=== PATIENT | female | born 1990 | race Two or more races ===

== ENCOUNTER 2021-01-14 05:00 | Day surgery (SDC) | payer BC, OTHER ==
[2021-01-12 15:04] LABS: BASOPHILS 0.8 % (0-2); EOSINOPHILS 2.1 % (0-7); HEMATOCRIT 45.5 % (36.0-48.0); HEMOGLOBIN 15.5 g/dL (12-16); LYMPHOCYTES 39.7 % (15-50); MCH 29.4 pg (26.0-34.0); MCHC 34.1 g/dL (31.0-37.0); MCV 86.3 fL (80.0-100.0); MEAN PLATELET VOLUME 8.5 fL (7.4-10.4); MONOCYTES 6.9 % (2-11); NEUTROPHILS 50.5 % (40-80); RBC 5.27 10x6/uL (4.00-5.40); RDW 13.3 % (11.5-14.5); WBC 6.7 10x3/uL (4.8-10.8)
[2021-01-12 15:39] LABS: PLATELET COUNT 244 10x3/uL (130-400)
[~2021-01-14] VITALS: Ht 167.6 cm; Wt 103.0 kg
[2021-01-14 06:09] VITALS: BP 129/89; Ht 167.6 cm; Wt 103.0 kg
[2021-01-14 06:18] LABS: HCG URINE NEGATIVE (NEGATIVE)
--- NOTE | 2021-01-14 11:49 | NUR ---
ASSUMED CARE OF PATIENT @ [id number]
[2021-01-14 15:40] LABS: HEMATOCRIT 42.3 % (36.0-48.0); HEMOGLOBIN 14.3 g/dL (12-16)
--- NOTE | 2021-01-14 15:41 | NUR ---
[address] ARAYA REGARDING ADMISSION STATUS. SHE IS AWAITING LAB RESULTS. STATED THAT SHE WOULD BE UP TO SEE PATIENT AND DISCUSS FINDINGS WITH HER.
--- NOTE | 2021-01-14 16:35 | NUR ---
1600 - DR. NICK HERE. ORDERS WRITTEN FOR CLEAR LIQUID DIET.
--- NOTE | 2021-01-14 16:36 | NUR ---
1610 PATIENT COMPLAINED OF HEADACHE. TYLENOL GIVEN FOR RELIEF. DISCUSSED HER MOVE TO A ROOM OVERNIGHT FOR OBSERVATION.
--- NOTE | 2021-01-14 17:36 | NUR ---
1739 WAITING TO GIVE REPORT. NURSE NOT AVAILABLE AT THIS TIME.
--- NOTE | 2021-01-14 17:43 | NUR ---
1740 REPORT CALLED TO MACO IN L AND D IN PREPARATION FOR TRANSFER TO ROOM 1276. CANTU EMPTIED OF 450CC. 1800CC IV FLUID INTAKE SINCE SURGERY.
[2021-01-14 19:30] VITALS: BP 124/71
--- NOTE | 2021-01-14 19:30 | NUR ---
RN TO BEDSIDE. SHIFT ASSESSMENT COMPLETED AT THIS TIME. SEE FLOWSHEET. PIV SL, CANTU CATH D/C'D WITH CATH TIP INTACT AND 500 ML CLEAR YELLOW URINE IN CANTU BAG. PT TOLERATED WELL. PT REQUESTS PAIN MEDICATION. 650 MG TYELNOL GIVEN PER ORDER. SEE EMAR FOR ADMINISTRATION. PT DENIES FURTHER NEEDS. WILL CONTINUE TO MONITOR. BED LOW,W HEELS LOCKED, CL AND PHONE WITHIN REACH SIDE RAILS UP X2.
--- NOTE | 2021-01-14 22:40 | NUR ---
ROUNDS MADE. PT RESTING QUIETLY WITH EYES CLOSED, RESPIRATIONS EVEN UNLABORED. PT LEFT UNDISTURBED.
--- NOTE | 2021-01-15 02:24 | NUR ---
ROUNDS MADE. PT CONTINUES TO REST QUIETLY IN RIGHT LATERAL IN HOSPITAL BED. PT LEFT UNDISTURBED.
--- NOTE | 2021-01-15 04:09 | NUR ---
ROUNDS MADE. PT RESTING SUPINE WITH RESPIRATIONS EVEN AND UNLABORED. PT LEFT UNDISTURBED.
[2021-01-15 07:49] VITALS: BP 108/65
--- NOTE | 2021-01-15 07:49 | NUR ---
RECEIVED PT SITTING UP IN BED. WATCHES TV. AAO X 3. VSS. HRRR WITHOUT AUDIBLE MURMUR. BBS CLEAR. BS X 4. ABDOMEN SOFT/NON-DISTENDED. 3 LAP INCISIONS NOTED. SMALL DRESSING TO UMB DRY WITHOUT DRAINAGE NOTED. 2 OUTER LAP INCISIONS WITHOUT REDNESS, SWELLING OR DRAINAGE NOTED. NO VAGINAL DISCHARGE NOTED ON PERIPAD. NEG HOMANS' SIGN. PPP. NO EDEMA NOTED TO BLE. SL TO RIGHT AC. SITE CLEAR. PT DENIES PAIN. PT OOB AND AMB TO BR TO VOID. VOIDS FREELY. DENIES ANY VAGINAL DISCHARGE. PT AMBULATES BACK TO BED. REGULAR DIET SERVED. SR UPX 2. CALL LIGHT IN REACH.
--- NOTE | 2021-01-15 08:30 | NUR ---
DR ARAYA VISITS WITH PT.
[2021-01-15] MEDS ORDERED: PERCOCET 5-3251 TAB PO (09:30)
[2021-01-15] MEDS ORDERED: IBUPROFEN800 MG PO (09:31)
[2021-01-15 10:08] LABS: HEMATOCRIT 37.6 % (36.0-48.0); HEMOGLOBIN 12.8 g/dL (12-16)
--- NOTE | 2021-01-15 10:33 | NUR ---
DR ARAYA NOTIFIED OF LAB RESULTS.
--- NOTE | 2021-01-15 10:35 | NUR ---
DR ARAYA ON UNIT. ORDER RECEIVED TO REPEAT H/H AT 1200. PT NOTIFIED.
[2021-01-15 12:02] LABS: HEMATOCRIT 36.8 % (36.0-48.0); HEMOGLOBIN 12.9 g/dL (12-16)
--- NOTE | 2021-01-15 12:26 | NUR ---
DR ARAYA NOTIFIED OF H/H RESULTS. ORDER RECE[facility]
--- NOTE | 2021-01-15 12:45 | NUR ---
PT READY FOR DISCHARGE. DISCHARGE INSTRUCTIONS GIVEN TO PT. PT VERBALIZES UNDERSTANDING OF ALL INSTRUCTIONS. COPIES GIVEN TO PT. RX FOR PERCOCET AND IBUPROFEN GIVEN TO PT. SL TO RIGHT AC DC'D WITH CATHELON INTACT. PRESSURE BANDAGE TO SITE. PT UP TO DRESS.
--- NOTE | 2021-01-15 12:50 | NUR ---
PT READY FOR DISCHARGE. DISCHARGED IN STABLE CONDITION VIA WHEELCHAIR TO PRIVATE VEHICLE.
--- NOTE | 2021-01-17 12:24 | OP ---
PATIENT NAME: SIDDHARTH TRUJILLO MEDICAL RECORD: [id number] :90 LOCATION:[facility] ADMISSION DATE: SURGEON: ROMAIN FISHER DO DATE OF OPERATION: 01/14/2021 PREOPERATIVE DIAGNOSES: Menorrhagia, AUB, pelvic pain, desires sterility. POSTOPERATIVE DIAGNOSES: Menorrhagia, AUB, pelvic pain, desires sterility. Failed ablation. PRIMARY SURGEON: Romain Fisher DO ANESTHESIA: General endotracheal tube. PROCEDURE: Diagnostic laparoscopy, bilateral fimbriectomy, hysteroscopy, D&C, failed ablation, cervical laceration repair. FINDINGS: Uterus enlarged in size. Bilateral tubes with adhesions to omentum and pelvic sidewall, adhesions of uterus to anterior abdominal wall. Grossly normal bilateral ovaries. Hysteroscopy demonstrated no polyps and not a lot of endometrial tissue, very, very soft, friable cervical tissue. SPECIMEN: Endometrial curetting, bilateral fimbria. ESTIMATED BLOOD LOSS: 100 cc. IV FLUIDS: 800 cc. URINE OUTPUT: 200 cc clear yellow urine in mckinney after diagnostic laparoscopic, after which mckinney removed. 50 cc clear yellow urine after vaginal portion of surgery when placing new mckinney catheter INFECTION PROPHYLAXIS: 1 gm Ancef. COMPLICATIONS: Cervical lacerations. The risks of the surgery including bleeding, pain, infection, damage to surrounding structures including ureters, bowel, bladder, uterine perforation and risk of reoperation and VTE reviewed with the patient. The patient expressed understanding, consent signed in office preoperatively and all questions answered in the preoperative area. The patient was taken to the operating room where general anesthesia was administered and found to be adequate. She was prepped and draped in normal sterile fashion in dorsal lithotomy position. Mckinney catheter placed. Speculum placed and anterior lip of cervix grasped and intially tenaculum pulled out, larger bite taken and held and cervix dilated only slightly to accomodate HUMI retractor. Speculum and tenaculum removed. attention then turned to the abdomen. Marcaine injected into port sites prior totrocar placement. Initially, a subumbilical incision OPERATIVE REPORT [id number] SIDDHARTH TRUJILLO made and 5-mm port placed. Short trocar used initially, but unable to get through facsia so long trocar place successfullly using direct entry technique, after which the patient placed in Trendelenburg and pneumoperitoneum created with CO2 gas. Laparoscope used to visualize the area of entry and no bleeding noted directly below. Attention then turned to left lower quadrant and 5 mm port placed under direct visualization without incident and a 5-mm port placed in the right lower quadrant under direct visualization without issue. Findings noted above. Due to adhesions and appearance of fimbria attached to peritoneal fat, I initially planned on doing cautery of tubes with cutting of tubes, so proximal end of tubes were cauterized with Thunderbeat, but due to closeness of tubes to vasculature decided to see if fimbirectomy was possible. On further inspection of the fat pads over on the fimbria, decision made to just do fimbriectomy since not highly vascular and no bowel present. So fimbria removed using Thunderbeat with good hemostasis and portions removed through port and sent to pathology. Abdomen was inspected and hemostasis was adequate. Tracking noted at subumbilical site with some extension of the skin incision, but on visualizing anterior wall, actual area of fascial deficit still only 5 mm from port. Ports removed and pneumoperitoneum deflated. Due to depth of pt subcutaneous layer, closed space with vicryl. skin closed in a subcuticular fashion with 3-0 Monocryl and then Dermabond and dressing applied. Lower quadrant port sites closed in subcuticular fashion with 3-0 Monocryl and Dermabond. Attention was then turned to the vagina. Initial grasp of tenaculum to anterior cervical lip did have some bleeding, but was able to place HUMI retractor on first try and then abdominal portion completed and returned to the vagina. HUMI removed. Mckinney removed. [place] speculum placed and tenaculum used to grasp anerior lip of cervix . While applying traction to dilate, again tenaculum pulled through very easily. Cervix tissue very, very soft and tenaculum pulled even with very minimal pressure, but no lesions or grossly abnormal cervical tissue noted. Able to hold very gently and dilated enough with Hegar dilators to allow for Aveta hysteroscope placement. Hysteroscope primed and uterus examined. No polyps noted. Bilateral ostia noted within normal limits. Hysteroscope removed and curettage with small sharp curette was performed in a clockwise fashion until gritty feeling noted. This was sent to pathology. Then, tried to further dilate the cervix to accommodate the NovaSure but cervix kept getting torn. Tenaculum placed on posterior lip and also tearing occurred, placed on side and side and still having feeling like disintegration of tissue. Bleeding noted to be heavier. At this time, Dr. Soler called for assistance and Vicryl suture placed in a running fashion on anterior lip of the cervix to reinforce cervix. Tenaculum grasped behind the sutures, making sure to avoid bladder, very short cervix as well and able to dilate to accommodate the NovaSure device. Length of cavity put in to be 6.5. Testing done and cavity size noted to be 3.4 cm. Cavity check done times 3, but unable to have cavity seal. Some bleeding still noted on the cervix, so ablation aborted and NovaSure instrument removed. At this time, attention was then turned to the cervix. Suture applied in running fashion and in some [id number] sutures applied with appropriate hemostasis. [place] OPERATIVE REPORT [id number] SIDDHARTH TRUJILLO nitrate to tenaculum site and Monsel solution due to overall extent of repair. All instruments removed and Mckinney replaced. Due to bleeding and trauma to the cervix, decision made to monitor the patient overnight. All lap, needle, sponge counts were correct times 2 and the patient was then awakened and taken to recovery room in stable condition. TRANSINT:[id number] Voice Confirmation ID: [id number] DOCUMENT ID: [id number] ROMAIN FISHER DO at 1224 CC: [id number] DICTATION DATE: 01/16/21 2235 [employer]ER: 01/17/21 0046 [facility] 01/15/21 [id number] [place] [address]
== END 2021-01-15 12:50 | disposition home or self-care (01) ==
LOC: D.OPS → D.LD 17:34 → D.OPS 01-15 12:50
PROVIDERS: ATTEND Obstetrics & Gynecology
DX: N93.9 Abnormal uterine and vaginal bleeding, unspecified (principal); N92.0 Excessive and frequent menstruation with regular cycle; R10.2 Pelvic and perineal pain; Z30.2 Encounter for sterilization; N92.1 Excessive and frequent menstruation with irregular cycle